=== PATIENT | female | born 1960 | race Hispanic/Latino ===

== ENCOUNTER 2019-09-24 07:35 | Day surgery (SDC) | payer MEDICAID ==
[2019-09-20 12:40] LABS: Basophils # (Auto) 0.1 K/mm3 (0.0-0.1); Basophils % (Auto) 0.8 % (0.0-1.8); Eosinophils # (Auto) 0.1 K/mm3 (0.0-0.4); Hematocrit 39.6 % (30.3-42.9); Hemoglobin 12.9 gm/dl (10.1-14.3); Lymphocytes # (Auto) 1.6 K/mm3 (1.2-5.4); Lymphocytes % (Auto) 13.8 % (13.4-35.0); Mean Corpuscular HGB Conc 33 % (30-34); Mean Corpuscular Volume 81 fl (79-97); Monocytes # (Auto) 1.3 K/mm3 (0.0-0.8); Monocytes % (Auto) 11.1 % (0.0-7.3); Platelet Count 303 K/mm3 (140-440); Red Blood Count 4.91 M/mm3 (3.65-5.03); Red Cell Distribution Width 14.8 % (13.2-15.2)
--- NOTE | 2019-09-20 12:46 | Anesthesia Consultation ---
Anesthesia Consult and Med Hx Date of service: 09/24/19 - Airway Anesthetic Teeth Evaluation: Edentulous ROM Head & Neck: Adequate (GOITER) Mental/Hyoid Distance: Adequate Mallampati Class: Class II Intubation Access Assessment: Probably Good - Pre-Operative Health Status ASA Pre-Surgery Classification: ASA4 Proposed Anesthetic Plan: General (SAB, GA if needed), Spinal - Pulmonary Hx Smoking: Yes (Quit 5 mos ago) Hx Respiratory Symptoms: Yes (Severe ROSENBAUM) COPD: Yes (Uses O2 when sleeping) Home Oxygen Therapy: Yes - Cardiovascular System Hx Hypertension: Yes (x 3 mos) Hx Coronary Artery Disease: No (NST [id number]) - Central Nervous System Hx Back Pain: Yes Hx Psychiatric Problems: Yes (Anxiety and panic attacks) - Endocrine Hx Hyperthyroidism: Yes (GOITER-enlarging and occasional dysphagia) - Other Systems Hx Cancer: No
[2019-09-20 12:51] LABS: Calcium 9.4 mg/dL (8.4-10.2)
[~2019-09-24 07:35] MED LIST: LIDOCAINE JELLY (2%) 5 ML TOPICAL MM ONE
--- NOTE | 2019-09-24 07:53 | Short Stay Summary ---
Short Stay Documentation Date of service: 09/24/19 Narrative H&P: Pt is a 59yo WF presents for surgical evaluation and treatment of extensive vaginal condyloma. - History Principal diagnosis: Extensive vaginal condyloma H&P: obtained from office Past Medical History: COPD, hyperthyroidism, hypertension Past Surgical History: hysterectomy, Other (bladder surgery) Social history: no significant social history, single - Allergies and Medications Current Medications: Allergies codeine Allergy (Verified 09/19/19 15:20) Rash, itching hydrocodone Allergy (Verified 09/19/19 15:20) Rash, itching morphine Allergy (Verified 09/19/19 15:20) Rash, itching Home Medications Medication Instructions Recorded Confirmed Last Taken Type ALBUTEROL NEB's [Proventil 0.083% 2.5 mg IH QID 09/19/19 09/19/19 Unknown History NEBS] ALPRAZolam [Xanax TAB] 0.5 mg PO TID PRN 09/19/19 09/19/19 Unknown History Albuterol Sulfate [Proventil Hfa] 2 puff IH Q4H PRN 09/19/19 09/19/19 Unknown History Budesonide/Formoterol Fumarate 10.2 gm IH BID 09/19/19 09/19/19 Unknown History [Symbicort 80-4.5 Mcg Inhaler] Ibuprofen [Motrin] 800 mg PO Q8HR PRN 09/19/19 09/19/19 Unknown History Ipratropium (Nf) [Atrovent] 2 puff IH Q6HR PRN 09/19/19 09/19/19 Unknown History Methimazole [Tapazole] 10 mg PO DAILY 09/19/19 09/19/19 Unknown History Triamterene/Hydrochlorothiazid 1 each PO DAILY 09/19/19 09/19/19 Unknown History [Triamterene-Hctz 37.5-25 mg Cp] - Physical exam General appearance: mild distress Integumentary: no rash HEENT: Atraumatic Lungs: Clear to auscultation Breasts: deferred Heart: Regular rate Gastrointestinal: normal Female Genitourinary: lesions (perineal lesions) Rectal Exam: deferred Extremities: no ischemia, No edema Neurological: Normal gait, Normal speech - Brief post op/procedure progress note Date of procedure: 09/24/19 Pre-op diagnosis: Extensive vaginal/rectal condyloma Post-op diagnosis: same Procedure: Laser ablation of extensive vaginal/rectal condyloma Anesthesia: spinal Findings: Extensive vaginal/perineal/rectal condyloma Surgeon: CARLO AWAN Estimated blood loss: 50-100ml Pathology: list (vaginal condyloma) Specimen disposition: to lab Condition: stable - Hospital course Hospital course: Unremarkable. - Disposition Condition at discharge: Good Disposition: - TO HOME OR SELFCARE - Discharge Diagnoses (1) Condyloma acuminatum of perianal region Status: Resolved (2) Condyloma acuminatum of anus Status: Resolved (3) Condyloma acuminatum of vagina Status: Resolved Short Stay Discharge Plan Activity: no restrictions Diet: regular Wound: open to air, keep clean and dry Follow up with: CARLO AWAN MD [Staff Physician] - 14 Days ALLEN PHELPS [Primary Care Provider] - 14 Days Prescriptions: Meperidine HCl [Demerol] 100 mg PO Q6HR #20 tablet Lidocaine [Lidocaine CREAM] 30 gm TP Q6HR #1 cream..g. Silver Sulfadiazine [Silvadene] 50 gm TP TID #1 cream..g.
[2019-09-24] MEDS ORDERED: ceFAZolin/Water 2 GM/20 ML 2 GM/20 ML SYRINGE IV NR (08:00)
[2019-09-24] MEDS ORDERED: LACTATED RINGERS 1,000 ML IV SCH (08:00)
--- NOTE | 2019-09-24 08:02 | Anesthesia Day of Surgery ---
Anesthesia Day of Surgery - Day of Surgery Patient Examined: Yes Patient H&P Reviewed: Yes Patient is NPO: Yes
[2019-09-24] MEDS ORDERED: ONDANSETRON 4 MG/2 ML INJ IV PRN ×2 (08:18→13:31)
[2019-09-24] MEDS ORDERED: ACETAMINOPHEN 325 MG TAB PO NR (08:19)
[2019-09-24] MEDS ORDERED: CELECOXIB 200 MG CAP PO NR (09:00)
[2019-09-24] MEDS ORDERED: MIDAZOLAM 2 MG/2 ML INJ IV NR (09:00)
[2019-09-24] MEDS ORDERED: LIDOCAINE 2% UROJECT 10 ML JELLY ONE (09:42)
[2019-09-24] MEDS ORDERED: ACETIC ACID 3% SOLN 60 ML TP ONE (09:42)
[2019-09-24] MEDS ORDERED: FERRIC SUBSULFATE TOPICAL SOLN 8 ML TP ONE (09:43)
[2019-09-24] MEDS ORDERED: LIDOCAINE 1%/EPINEPHRINE 1:100,000 VIAL (20 ML) INFILTRATI ONE (09:43)
[2019-09-24] MEDS ORDERED: POTASSIUM IODIDE/IODINE (LUGOLS) 30 ML TP ONE (09:43)
[2019-09-24] MEDS ORDERED: LIDOCAINE JELLY (2%) 5 ML TOPICAL ONE ×2 (09:44→11:51)
[2019-09-24] MEDS ORDERED: MIDAZOLAM 2 MG/2 ML INJ ONE ×2 (09:47→10:03)
[2019-09-24] MEDS ORDERED: KETAMINE/STERILE WATER 50 MG/ML SYRINGE ONE (10:02)
[2019-09-24] MEDS ORDERED: PROPOFOL 200 MG/20 ML VIAL IV ONE ×2 (10:17→11:00)
[2019-09-24] MEDS ORDERED: LIDOCAINE JELLY (2%) 5 ML TOPICAL MM ONE ×2 (11:35)
--- NOTE | 2019-09-24 12:01 | Operative Report ---
Operative Report Operative Report: PREOPERATIVE DIAGNOSIS: Extensive vaginal, perineal and perianal condyloma POSTOPERATIVE DIAGNOSIS: Same OPERATIVE PROCEDURE: CO2 laser ablation and vaporization of extensive vaginal, perineal and perianal codylomas. SURGEON: John Macdonald MD ANESTHESIA: Spinal anesthesia ANESTHESIOLOGIST: Dr. Madden ESTIMATED BLOOD LOSS: 200 mL's FINDINGS: There was very extensive condyloma all over the vagina, perineal and perianal areas. COMPLICATIONS: None COUNTS: Correct x3. PROCEDURE: After the patient was correctly identified, and after a satisfactory level of spinal anesthesia was administered, the patient was prepped and draped using moist blue towels in the usual sterile fashion and placed in dorsal lithotomy position. First the bladder was emptied using a straight catheter. The LOOP was used the shave down the 20 large protruding condylomas, then the CO2 laser on continuous mode with 15 Garcia of power was used to ablate and vaporize condyloma over a 15 x 15cm area. There were greater than 200 condylomas that were ablated. Following complete ablation, a mixture of Silvadene cream and Viscous lidocaine slurry was placed on all the areas that were ablated. At this point the procedure was considered complete. The patient tolerated the procedure well and was transferred to the recovery room in stable condition.
[2019-09-24] MEDS ORDERED: KETOROLAC 30 MG/1 ML INJ ONE (12:04)
[2019-09-24] MEDS ORDERED: ePHEDrine SULFATE 50 MG/1 ML INJ ONE (12:06)
[2019-09-24] MEDS: fentaNYL 100 MCG/2 ML INJ IV PRN ×2 (12:30→12:45)
[2019-09-24] MEDS ORDERED: KETOROLAC 30 MG/1 ML INJ IV ONE (13:15)
--- NOTE | 2019-09-24 13:49 | Post Anesthesia Evaluation ---
- Post Anesthesia Evaluation Patient Participated: Yes Airway Patent: Yes Stable Respiratory Function: Yes Nausea/Vomiting: No Temp > 96.8F: Yes Pain Manageable: Yes Adequeate Hydration: Yes Anesthesia Complications: No Block Receding Appropriately: Yes Patient on Ventilator: No
[2019-09-24 15:22] VITALS: BP 99/57
== END 2019-09-24 07:36 | disposition home or self-care (01) ==
LOC: OR 07:35
PROVIDERS: ATTEND Obstetrics & Gynecology
DX: A63.0 Anogenital (venereal) warts (principal); I10 Essential (primary) hypertension; F41.9 Anxiety disorder, unspecified; J43.9 Emphysema, unspecified; E05.90 Thyrotoxicosis, unspecified without thyrotoxic crisis or storm; Z98.890 Other specified postprocedural states; Z90.710 Acquired absence of both cervix and uterus
CPT/HCPCS: 17111; 36415; 46924; 57065; 80048; 85025; 88304; 88305; J0690; J1885; J2250; J2405; J2704; J3010; J7120